=== PATIENT | female | born 1990 | race Caucasian/White ===

== ENCOUNTER 2016-10-06 12:00 | Emergency (ER) | payer OTHER ==
[~2016-10-06] VITALS: Ht 167.6 cm; Wt 93.0 kg
[2016-10-06 12:34] VITALS: BP 134/83
--- NOTE | 2016-10-06 13:06 | NUR ---
Patient ambulated to bed 6. RN evaluating patient at bedside.
--- NOTE | 2016-10-06 13:10 | NUR ---
Dr. Resendiz evaluating patient at bedside.
[2016-10-06] MEDS ORDERED: NACL 0.9% 1,000 ML IV SCH (13:13)
[2016-10-06] MEDS ORDERED: diphenhydrAMINE 50 MG/ML VIAL IVP ONE (13:15)
[2016-10-06] MEDS ORDERED: ONDANSETRON 4 MG/2 ML VIAL IVP ONE ×2 (13:15→14:45)
--- NOTE | 2016-10-06 14:00 | NUR ---
PATIENT SLEEPING COMFORTABLY IN BED AT THIS TIME. WILL CONTINUE TO MONITOR
--- NOTE | 2016-10-06 14:40 | NUR ---
PATIENT COMPLAINING OF HEADACHE 04/17. ER MD MADE AWARE. WILL CONTINUE TO MONITOR.
[2016-10-06] MEDS ORDERED: HYDROmorphone 1 MG/ML AMP IVP ONE (14:45)
--- NOTE | 2016-10-06 15:20 | NUR ---
PATIENT REPORTS FEELING BETTER. WILL CONTINUE TO MONITOR.
[2016-10-06 15:47] VITALS: BP 117/64
--- NOTE | 2016-10-06 15:48 | NUR ---
Patient discharged with v/s stable. Written and verbal after care instructions given and explained. Patient alert, oriented and verbalized understanding of instructions. Ambulatory with steady gait. All questions addressed prior to discharge. ID band removed. Patient advised to follow up with PMD. Rx of JARVIS AND CLEOPATRA NESBITT given. Patient educated on indication of medication including possible reaction and side effects. Opportunity to ask questions provided and answered.
== END 2016-10-06 15:48 | disposition home or self-care (01) ==
LOC: MED 12:00
DX: G43.909 Migraine, unspecified, not intractable, without status migrainosus (principal); R03.0 Elevated blood-pressure reading, without diagnosis of hypertension
CPT/HCPCS: 36415; 80053; 81002; 81025; 85025; 96361; 96374; 96375; 96376; 99284; J1170; J1200; J2405; J7030

== ENCOUNTER 2022-09-23 19:28 | Inpatient (IN) | payer OTHER ==
[~2022-09-23] VITALS: Ht 170.2 cm; Wt 108.0 kg
[2022-09-23 19:30] VITALS: BP 143/88
--- NOTE | 2022-09-23 19:33 | NUR ---
TO LOBBY A/W BED AMBULATORY
[2022-09-23] MEDS ORDERED: ONDANSETRON 4 MG ODT PO ONE (20:15)
--- NOTE | 2022-09-23 20:20 | NUR ---
PT TAKEN TO BED 3
[2022-09-23 20:21] LABS: APPEARANCE,URINE SL CLOUDY (CLEAR); BILIRUBIN,URINE NEGATIVE (NEGATIVE); BLOOD, URINE TRACE-I (NEGATIVE); COLOR,URINE YELLOW (YELLOW); LEUKOCYTE ESTERASE ,URINE 2+ (NEGATIVE); NITRITE, URINE NEGATIVE (NEGATIVE); UGLUCOSE NEGATIVE (NEGATIVE)
[2022-09-23] MEDS ORDERED: ALUMINUM HYD/MAG/SIMETHICONE 30 ML UDC PO ONE (20:25)
[2022-09-23] MEDS ORDERED: FAMOTIDINE 20 MG TAB PO ONE (20:25)
[2022-09-23 20:38] LABS: BASOPHILS # (AUTO) 0.1 K/uL (0.00-0.22); BASOPHILS % (AUTO) 0.8 % (0.0-2.0); EOSINOPHILS # (AUTO) 0.2 K/uL (0-0.4); EOSINOPHILS % (AUTO) 2.1 % (0.0-4.0); HEMATOCRIT 38.6 % (36-48); HEMOGLOBIN 12.6 g/dL (12.0-16.0); LYMPHOCYTES # (AUTO) 2.4 K/uL (2.5-16.5); LYMPHOCYTES % (AUTO) 26.2 % (20.5-51.1); MEAN CORPUSCULAR HEMOGLOBIN 26 pg (27-31); MEAN CORPUSCULAR HGB CONC 33 g/dL (33-37); MEAN CORPUSCULAR VOLUME 78.4 fL (80-94); MONOCYTES # (AUTO) 0.6 K/uL (0.8-1.0); MONOCYTES % (AUTO) 6.2 % (1.7-9.3); NEUTROPHILS # (AUTO) 5.8 K/uL (1.8-7.7); NEUTROPHILS % (AUTO) 64.7 % (42.2-75.2); PLATELET COUNT (AUTO) 303 K/uL (140-450); RED BLOOD CELL COUNT(AUTO) 4.92 MIL/uL (4.20-5.40); RED CELL DISTRIBUTION WIDTH 15.6 % (11.6-13.7)
[2022-09-23 20:52] LABS: OTHER CASTS, URINE None Seen /LPF (None Seen)
[2022-09-23 20:58] LABS: ALBUMIN 4.1 g/dL (3.4-5.0); ANION GAP 13.6 (8-16); CARBON DIOXIDE 29.4 mmol/L (21-32); CREATININE 0.9 mg/dL (0.6-1.3); TOTAL BILIRUBIN 0.1 mg/dL (0.0-1.0)
--- NOTE | 2022-09-23 20:59 | NUR ---
PT BIBS FROM HOME WITH COMPLAINT OF ABD PAIN THAT RAD TO LOWER BACK X 3 DAYS, WITH NAUSEA. DENIES PAIN DURING URINATION, VOMITING, CP, SOB. A/O X4 W STEADY GAIT.
[2022-09-23] MEDS ORDERED: cefTRIAXone 1,000 MG in DEXT 5% MINI-BAG PLUS 50 ML IV ONE (21:20)
[2022-09-23] MEDS ORDERED: metroNIDAZOLE 500 MG/NS PREMIX 100 ML IV ONE (21:20)
[2022-09-23] MEDS ORDERED: MORPHINE SULFATE 4 MG/ML SYR IVP ONE (21:20)
--- NOTE | 2022-09-23 21:20 | NUR ---
Dr. Lackey examining patient.
[2022-09-23] MEDS ORDERED: NACL 0.9% 1,000 ML IV ONE (21:35)
[2022-09-23] MEDS ORDERED: cefTRIAXone 1,000 MG VIAL ONE (21:37)
[2022-09-23] MEDS ORDERED: MORPHINE SULFATE 2 MG/ML SYR IVP PRN (21:45)
--- NOTE | 2022-09-23 21:50 | NUR ---
Semaj saavedra in [facility] - 09/23/22 at 2210 by [id number] PT TAKEN TO CT
--- NOTE | 2022-09-23 21:50 | NUR ---
20G PLACED TO LAFT AC, NO INFLITRATION NOTED. PATIENT TOLERATED WELL.
[2022-09-23] MEDS: NACL 0.9% 1,000 ML IV SCH (22:16)
--- NOTE | 2022-09-23 23:30 | NUR ---
PATIENT LAYING IN GURNEY, RESTING WITH EYES OPEN. PATIENT DOES C/O PAIN 4/10 BUT WANT TO HOLD OF ON PAIN MEDICATION UNTILL IT GETS WORSE. NO ACUTE DISTRESS NOTED.
--- NOTE | 2022-09-24 01:12 | NUR ---
PATIENT C/O ABDOMINAL PAIN 02/15. WILL GIVE 2MG OF MORPHINE PER ADMIT ORDER.
--- NOTE | 2022-09-24 02:25 | NUR ---
Patient appears to be resting comfortably in bed. Vital Signs within normal limits. Respirations even and unlabored.
--- NOTE | 2022-09-24 05:28 | NUR ---
Patient appears to be resting comfortably in bed. Vital Signs within normal limits. Respirations even and unlabored.
[2022-09-24] MEDS: HYDROcodone/APAP 5/325 MG 1 TAB TAB PO PRN (06:27)
--- NOTE | 2022-09-24 06:27 | NUR ---
PATIENT REPORTS PAIN 12/16, GAVE PT NORCO PER SCHEDULED ORDER
[2022-09-24 06:42] LABS: BASOPHILS # (AUTO) 0.1 K/uL (0.00-0.22); BASOPHILS % (AUTO) 1.5 % (0.0-2.0); EOSINOPHILS # (AUTO) 0.3 K/uL (0-0.4); EOSINOPHILS % (AUTO) 3.7 % (0.0-4.0); HEMATOCRIT 34.7 % (36-48); HEMOGLOBIN 11.7 g/dL (12.0-16.0); LYMPHOCYTES # (AUTO) 2.5 K/uL (2.5-16.5); LYMPHOCYTES % (AUTO) 32.8 % (20.5-51.1); MEAN CORPUSCULAR HEMOGLOBIN 26 pg (27-31); MEAN CORPUSCULAR HGB CONC 34 g/dL (33-37); MEAN CORPUSCULAR VOLUME 78.3 fL (80-94); MONOCYTES # (AUTO) 0.5 K/uL (0.8-1.0); MONOCYTES % (AUTO) 6.9 % (1.7-9.3); NEUTROPHILS # (AUTO) 4.3 K/uL (1.8-7.7); NEUTROPHILS % (AUTO) 55.1 % (42.2-75.2); PLATELET COUNT (AUTO) 267 K/uL (140-450); RED BLOOD CELL COUNT(AUTO) 4.43 MIL/uL (4.20-5.40); RED CELL DISTRIBUTION WIDTH 15.5 % (11.6-13.7); WHITE BLOOD COUNT (AUTO) 7.7 K/uL (4.8-10.8)
[2022-09-24 06:52] LABS: ANION GAP 10.6 (8-16); CARBON DIOXIDE 25.7 mmol/L (21-32); CREATININE 0.8 mg/dL (0.6-1.3); POTASSIUM 4.3 mmol/L (3.5-5.1)
--- NOTE | 2022-09-24 07:24 | NUR ---
Pt report given to Felicia. Transfer of care at this time.
--- NOTE | 2022-09-24 07:25 | NUR ---
Report recieved from JOANN Holley for transfer of care.
[2022-09-24] MEDS: NACL 0.9% 1,000 ML IV SCH ×2 (09:00→18:38)
--- NOTE | 2022-09-24 09:03 | NUR ---
Patient ambulated to restroom with steady gait.
[2022-09-24] MEDS ORDERED: ACETAMINOPHEN 325 MG TAB PO PRN (09:20)
[2022-09-24] MEDS ORDERED: POTASSIUM CHLORIDE 10 MEQ TABER PO PRN (09:20)
[2022-09-24] MEDS ORDERED: MAG SULF 2000 MG/WATER PREMIX 50 ML IV PRN (09:20)
--- NOTE | 2022-09-24 09:53 | NUR ---
X-Ray at bedside.
[2022-09-24] MEDS ORDERED: cefTRIAXone 1,000 MG VIAL ONE (09:57)
[2022-09-24 10:29] LABS: PROTHROMBIN TIME 10.3 secs (10.8-13.4)
[2022-09-24 10:41] LABS: AMYLASE 56 U/L (25-115); FREE T4 (FREE THYROXINE) 0.85 ng/dL (0.76-1.46); HDL CHOLESTEROL 44 mg/dL (40-60); LDL (CALC) 95 mg/dL (60-100); LIPASE 199 U/L (73-393); THYROID STIMULATING HORMONE 2.21 uIU/mL (0.34-3.74); TRIGLYCERIDES 191 mg/dL (30-150)
[2022-09-24] MEDS: ONDANSETRON 4 MG/2 ML VIAL IVP PRN ×2 (10:54→22:15)
--- NOTE | 2022-09-24 11:12 | NUR ---
Patient is laying in bed, respirations even and unlabored. All needs met by staff.
[2022-09-24] MEDS ORDERED: LACTULOSE 20 GM/30 ML UDC PO SCH (12:15)
--- NOTE | 2022-09-24 13:09 | NUR ---
Dr. Long, surgeon, evaluating patient at bedside. Received new orders for Hida scan and to notify MD when results are up.
[2022-09-24] MEDS ORDERED: ACETAMINOPHEN 100 ML IV SCH (13:35)
--- NOTE | 2022-09-24 14:32 | NUR ---
Patient ambulated to restroom with steady gait.
--- NOTE | 2022-09-24 15:30 | NUR ---
Patient will be admitted to care of Dr. De La Cruz. Admited to Telemetry. Will go to room 116. Belongings list completed. Report to JOANN Vuong.
--- NOTE | 2022-09-24 15:31 | NUR ---
The patient's care was reviewed and supervised by Angeline Johnson RN.
--- NOTE | 2022-09-24 15:46 | NUR ---
PATIENT HAS BEEN SCREENED AND CATEGORIZED MODERATE NUTRITION RISK. PATIENT WILL BE SEEN WITHIN 3-5 DAYS OF ADMISSION. REVIEWED BY FARA MARTINES RD
[2022-09-24 18:50] VITALS: BP 122/76
--- NOTE | 2022-09-24 19:30 | NUR ---
RECD REPORT FROM JOANN KRUGER. PATIENT RESTING IN BED, AWAKE, A/OX4. RESPIRATION EVEN AND UNLABORED. IV OF NS INFUSING AT 60 ML/HR LEFT AC G20. AMBULATORY TO THE BATHROOM. NPO EXCET MEDICATIONS. WAITING FOR HIDA SCAN TECH. DENIES PAIN 0/10. AT THE BEDSIDE.
[2022-09-24 20:00] VITALS: BP 120/69
--- NOTE | 2022-09-24 20:00 | NUR ---
Patient's Plan of Care was discussed and reviewed with [employer]ER[employer] ENGINEER: HAWK VIDAL
--- NOTE | 2022-09-24 20:05 | NUR ---
TAKEN TO NUCLEAR MED FOR HIDA SCAN BY ALEX CUNNINGHAM VIA W/C.
--- NOTE | 2022-09-24 21:30 | NUR ---
BACK FROM HIDA SCAN TEST VIA W/C ACCOMPANIED BY TECH. MADE COMFORTABLE IN BED WITH PILLOWS.
[2022-09-24] MEDS: DOCUSATE SODIUM 100 MG GELCAP PO SCH (21:59)
--- NOTE | 2022-09-24 22:15 | NUR ---
NAUSEATED, MEDICATED WITH ZOFRAN BY JALEN DAVID.
--- NOTE | 2022-09-24 23:15 | NUR ---
RESTING IN BED COMFORTABLY IN BED, NO NAUSEA NOTED.
[2022-09-25] VITALS: BP 100/49
--- NOTE | 2022-09-25 01:30 | NUR ---
AMBULATED OT THE BR TO VOID. BACK TO BED AFTER VOIDING, WARM BLANKETS GIVEN..
[2022-09-25] MEDS: NACL 0.9% 1,000 ML IV SCH ×2 (02:19→04:00)
[2022-09-25] MEDS: HYDROcodone/APAP 5/325 MG 1 TAB TAB PO PRN (02:19)
[2022-09-25 04:00] VITALS: BP 110/69
--- NOTE | 2022-09-25 07:15 | NUR ---
ASSUMED CONTINUITY OF CARE. INITIAL ASSESSMENT DONE. KEEP COMFORTABLE ON BED. CALL LIGHT WITHIN REACH.
[2022-09-25 07:31] LABS: BASOPHILS % (AUTO) 0.6 % (0.0-2.0); EOSINOPHILS # (AUTO) 0.2 K/uL (0-0.4); EOSINOPHILS % (AUTO) 2.7 % (0.0-4.0); HEMATOCRIT 35.2 % (36-48); HEMOGLOBIN 11.5 g/dL (12.0-16.0); LYMPHOCYTES # (AUTO) 2.1 K/uL (2.5-16.5); LYMPHOCYTES % (AUTO) 32.5 % (20.5-51.1); MEAN CORPUSCULAR HEMOGLOBIN 26 pg (27-31); MEAN CORPUSCULAR HGB CONC 33 g/dL (33-37); MEAN CORPUSCULAR VOLUME 79.7 fL (80-94); MONOCYTES # (AUTO) 0.5 K/uL (0.8-1.0); NEUTROPHILS # (AUTO) 3.7 K/uL (1.8-7.7); NEUTROPHILS % (AUTO) 56.2 % (42.2-75.2); PLATELET COUNT (AUTO) 279 K/uL (140-450); RED BLOOD CELL COUNT(AUTO) 4.41 MIL/uL (4.20-5.40); RED CELL DISTRIBUTION WIDTH 15.6 % (11.6-13.7); WHITE BLOOD COUNT (AUTO) 6.5 K/uL (4.8-10.8)
[2022-09-25 08:00] VITALS: BP 96/44
[2022-09-25] MEDS ORDERED: PANTOPRAZOLE 40 MG INJ VIAL IVP SCH (09:00)
[2022-09-25] MEDS: DOCUSATE SODIUM 100 MG GELCAP PO SCH (09:00)
[2022-09-25] MEDS ORDERED: LACTULOSE 20 GM/30 ML UDC PO SCH (09:00)
--- NOTE | 2022-09-25 09:07 | NUR ---
DR. DEGROOT CALLED AND ASKED FOR PT. GALL BLADDER HIDA SCAN NM RESULTS. IMPRESSION RESULTS WAS READ VIA PHONE TO DR. DEGROOT. NO ORDER RECEIVED.
--- NOTE | 2022-09-25 09:15 | NUR ---
PATIENT REFUSED SCHEDULED MEDICATIONS. EXPLAINED RISK AND BENEFITS BUT STILL REFUSED. HEPARIN ALREADY PREPARED BUT PT REFUSED.
[2022-09-25 09:18] LABS: ANION GAP 11.2 (8-16); CARBON DIOXIDE 28.8 mmol/L (21-32); CREATININE 0.7 mg/dL (0.6-1.3)
[2022-09-25 09:35] LABS: PHOSPHORUS 4.6 mg/dL (2.5-4.9)
[2022-09-25] MEDS ORDERED: TRAM50TA3 PO (10:45)
[2022-09-25] MEDS ORDERED: DOCU-299 PO (10:45)
--- NOTE | 2022-09-25 11:25 | NUR ---
DR. SIMON CAME AND EXPLAINED TO PT. ABOUT D/C INSTRUCTIONS AND MD FOLLOW UP.
--- NOTE | 2022-09-25 12:18 | NUR ---
D/C HOME VIA WHEELCHAIR. NO C/O PAIN. IN STABLE CONDITION.
== END 2022-09-25 12:18 | disposition home or self-care (01) | DRG 445 ==
LOC: MED 19:28 → MMU 21:50 → MTU 09-24 14:31
PROC: CF241ZZ Tomographic (Tomo) Nuclear Medicine Imaging of Gallbladder using Technetium 99m (Tc-99m) (ICD-10-PCS; principal; 2022-09-24)
DX: K80.20 Calculus of gallbladder without cholecystitis without obstruction (principal); N39.0 Urinary tract infection, site not specified; K76.82 Hepatic encephalopathy; J45.909 Unspecified asthma, uncomplicated; E66.9 Obesity, unspecified; R74.01 Elevation of levels of liver transaminase levels; D64.9 Anemia, unspecified; K76.0 Fatty (change of) liver, not elsewhere classified; Z20.822 Contact with and (suspected) exposure to COVID-19; R16.0 Hepatomegaly, not elsewhere classified; E78.5 Hyperlipidemia, unspecified; E86.0 Dehydration; Z68.37 Body mass index [BMI] 37.0-37.9, adult; Z82.49 Family history of ischemic heart disease and other diseases of the circulatory system
CPT/HCPCS: 36415; 71045; 76705; 78445; 80048; 80053; 81001; 82140; 82150; 83036; 83605; 83690; 83735; 83880; 84100; 84439; 84443; 84484; 84703; 85025; 85610; 85730; 86886; 86900; 86901; 87040; 87081; 87086; 96365; 96367; 96375; 96376; 99285; C9113; J0696; J1644; J2270; J2405; J3490; J7060; Q0092; Q0162